=== PATIENT | male | born 1960 | race Caucasian/White ===

== ENCOUNTER 2019-12-04 15:39 | Outpatient (CLI) | payer OTHER ==
[2019-12-04 22:29] LABS: Cotinine Negative (Negative); Cotinine Internal Control Line Seen (Line Seen)
== END 2019-12-04 15:40 | disposition home or self-care (01) ==
LOC: NAV LAB 15:39
DX: Z00.00 Encounter for general adult medical examination without abnormal findings (principal)
CPT/HCPCS: 80323